=== PATIENT | female | born 1955 | race Caucasian/White ===

== ENCOUNTER 2016-08-24 11:39 | Emergency (ER) | payer MEDICAID, OTHER ==
[~2016-08-24] VITALS: Ht 160 cm; Wt 81.8 kg
[2016-08-24 11:41] VITALS: BP 162/77; PULSE 78; RESP 18; O2SAT 100
--- NOTE | 2016-08-24 12:26 | ED.REPORT ---
HPI-Abd Pain F 40 and Over Date of Service Aug 24, 2016 ED Provider: History of Present Illness: 60-year-old female here for abdominal pain and headache. Acute onset yesterday afternoon. No known fever. She has been vomiting fairly constantly this point she is only dry heaving. She has a frontal headache but does not feel like her usual migraines. She says it feels like the flu. She is having no lightheadedness or visual changes. Her abdominal pain is generalized and right now is not present. She just feels like she has been dry heaving a lot. No urinary symptoms, no diarrhea. Family members have same symptoms. She also sore throat and runny nose Nursing Notes Stated Complaint: VOMITING Chief Complaint: General Complaint Nursing Notes Reviewed: Yes Allergies: Coded Allergies: diphenhydramine (Verified Adverse Reaction, Unknown, 08/24/16) Uncoded Allergies: antihistamines (Allergy, Severe, Anaphylaxis, 08/24/16) narcotics (Adverse Reaction, Severe, 08/24/16) Scheduled PRN Ondansetron ODT (Zofran ODT) 4 Mg Tablet 4 MG PO Q4H PRN PRN For Nausea General Time Seen by MD: 12:21 Chief Complaint Abdominal pain, Nausea, Vomiting moderate Hx Obtained From: Patient Arrived By: Walk-in Sudden in Onset?: Yes Onset Occurred: Yesterday Symptom Duration: Waxes and wanes Progression since Onset: Intermittent Radiation: : Does not radiate Severity: Current: No pain currently Severity: Maximum: Severe Associated with: Reports: Nausea, Vomiting Additional Notes: MENARD Pertinent Negative: Pt denies other symptoms Recent Healthcare: No recent doctor visit Similar Sx Previous: No Review of Systems Basic Review of Systems Eyes: Vision NL, No discharge ENT: Hearing NL, No pain, No nasal congestion, No pharyngeal pain Hematologic: No bleeding, No bruising Endocrine: No cold intolerance, No heat intolerance, No weight gain, No weight loss Skin: No bruising, No rash, No itch Allergy / Immune: No allergy Neurologic: NL mental status, No weakness, No numbness Constitutional: Denies: Chills, Fatigue, Fever, Lethargy, Malaise, Recent wt loss, Weakness - generalized Respiratory: Denies: Dyspnea on exertion, Hemoptysis, Non-productive cough, Parox nocturnal dyspnea, Pleuritic pain, Prod cough, bloody, Prod cough, brown, Prod cough, clear, Prod cough, green, Prod cough, white, Prod cough, yellow, Shortness of breath, Wheezing Cardiovascular: Denies: Chest pain, Dyspnea on exertion, Edema, Orthopnea, Palpitations, Parox nocturnal dyspnea, Syncope GI: Reports: Abdominal pain, Nausea, Vomiting, Denies: Bloody/tarry stool, Constipation, Diarrhea Female: Denies: Dysuria, Flank pain, Hematuria, Incontinence, Nocturia, Pelvic pain, , Urinary frequency, Urinary urgency, Urination decreased, Urination increased, Vaginal bleeding - abnl, Vaginal discharge Musculoskeletal: Denies: Back pain, Extremity pain, Extremity swelling, Joint pain, Joint swelling, Lumbar pain, Myalgia, Neck pain, Thoracic pain Complete sys rev & neg: except as marked. Physical Exam Vital Signs Vital Signs (First) Date Time Temp Pulse Resp B/P Pulse Ox O2 Delivery O2 Flow Rate FiO2 08/24/16 11:41 36.2 78 18 162/77 100 Room Air Initial VS: Reviewed, Vital signs normal Head / Eyes: Atraumatic, Normocephalic, PERRL ENT: Mucous membranes moist, Conjunctiva normal, No scleral icterus Neck: Supple, Non-tender, Full range of motion Lymphatic: No lymphadenopathy Extremities: Vascular intact, Neuro intact, No swelling, No tenderness Skin: Warm, Dry, No cyanosis Neurologic: Alert, Oriented, Nonfocal Psychiatric: Mood/affect normal, Behavior normal, Normal thought content General/Constitutional: Awake, Alert Respiratory / Chest: Atraumatic, Breath sounds = bilat, No respiratory distress , No rales, No rhonchi, No stridor Wheezing / Retractions: Positive: Wheezing expiratory Cardiovascular: Heart rate NL, Regular rhythm, Heart sounds NL, Peripheral circulation NL Abdomen: Soft, Non-tender, McBurney's non-tender, No guarding, No rebound, BS normoactive, No distention, No hernia, No palpable mass, No pulsatile mass Back: Inspection NL, Non-tender, No CVA tenderness Head / Eyes: Normocephalic, PERRL ENT: Airway patent, Mucous membranes moist, Pharynx NL, No facial swelling Skin: Color NL, Warm, Dry, Turgor NL Interpretation & Diagnostics Lab Results Interpretation Result Diagram: 08/24/16 1258 08/24/16 1258 Test 08/24/16 12:58 08/24/16 14:30 White Blood Count 9.1th/mm3 (3.8-10.1) Red Blood Count 4.34mil/mm3 (3.90-5.20) Hemoglobin 13.6g/dL (12.0-15.6) Hematocrit 40.1% (35.0-46.0) Mean Corpuscular Volume 92.4fL (81-100) Mean Corpuscular Hemoglobin 31.3pg (27.0-35.0) Mean Corpuscular Hemoglobin Concent 33.9% (32.0-37.0) Red Cell Distribution Width 12.5% (12.3-15.4) Platelet Count 304bil/L (150-400) Neutrophils (%) (Auto) 85.8% (40-74) Lymphocytes (%) (Auto) 10.8% (14-46) Monocytes (%) (Auto) 3.1% (4-12) Eosinophils (%) (Auto) 0% (0-5) Basophils (%) (Auto) 0.2% (0-3) Sodium Level 135mEq/L (134-144) Potassium Level 3.7mEq/L (3.5-5.2) Chloride Level 100mEq/L (97-108) Carbon Dioxide Level 21mmol/L (18-29) Blood Urea Nitrogen 10mg/dL (8-27) Creatinine 0.64mg/dL (0.57-1.00) Estimat Glomerular Filtration Rate 135mL/min (>59) Glucose Level 117mg/dL (60-99) Calcium Level 9.2mg/dL (8.5-10.1) Magnesium Level 1.8mg/dL (1.6-2.6) Total Bilirubin 0.4mg/dL (0.0-1.2) Aspartate Amino Transf (AST/SGOT) 14U/L (0-50) Alanine Aminotransferase (ALT/SGPT) 11U/L (0-32) Alkaline Phosphatase 69U/L (25-165) Total Protein 8.0g/dL (6.4-8.4) Albumin 4.3g/dL (3.4-5.0) Lipase 14U/L (13-60) Hold Urine Received (Received) X-Ray Chest Interpretation Chest Xray Interpretation: PROCEDURE: X-RAY CHEST ONE VIEW ([id number]) INDICATIONS: wheezing, vomiting TECHNIQUE: One view of the chest was acquired. COMPARISON: None. FINDINGS: Surgical changes and devices: None. Lungs and pleura: No pleural effusions or pneumothorax. Lungs are clear. Mediastinum: Mediastinal contours appear normal. Heart size is normal. Bones and chest wall: No suspicious bony lesions. Overlying soft tissues appear unremarkable. IMPRESSION: No acute pulmonary process. Re-Eval/Medical Decision Med Decision/Clinical Course Labs/xray normal. pt improving. able to tolerate PO. MENARD minimal, no abd pain. Pt feels ready to go home. Discharge & Departure Shift Change Sign-Out Laboratory Evaluation: Lab evaluation discussed Imaging Studies: Imaging discussed Response to Therapy: Improved Primary Impression: Headache Headache type: unspecified Headache chronicity pattern: acute headache Intractability: not intractable Qualified Code: R51 - Headache Additional Impression: Nausea & vomiting Vomiting type: unspecified Vomiting Intractability: unspecified Qualified Code: R11.2 - Nausea with vomiting, unspecified Disposition: Home Discharge Condition All VS Reviewed: Yes Condition: Stable Patient Instructions: Acute Headache (ED) Additional Instructions: Get plenty of rest, drink lots of water. Take home pain meds as needed for pain. Follow up in ER immediately if pain becomes severe, uncontrollable vomiting, fevers, or worse in anyway. Follow-up with your PCP tomorrow if her symptoms persist. Referrals: Bart Soni MD (PCP) EDSupervising Provider for APC: Tex Negro MD copies to: Bart Soni MD, Linnea K [facility] Aug 24, 2016 12:26
[2016-08-24] MEDS ORDERED: MetoCLOpramide 5 mg/mL 2 mL Inj IVPUSH PRN (12:40)
[2016-08-24] MEDS ORDERED: 0.9% Sodium Chloride 1,000 ML IV ONE (12:40)
--- NOTE | 2016-08-24 13:24 | DRSVH ---
PROCEDURE: X-RAY CHEST ONE VIEW ([id number]) INDICATIONS: wheezing, vomiting TECHNIQUE: One view of the chest was acquired. COMPARISON: None. FINDINGS: Surgical changes and devices: None. Lungs and pleura: No pleural effusions or pneumothorax. Lungs are clear. Mediastinum: Mediastinal contours appear normal. Heart size is normal. Bones and chest wall: No suspicious bony lesions. Overlying soft tissues appear unremarkable. IMPRESSION: No acute pulmonary process. Dictated by: Germaine Edward M.D. on 08/24/2016 at 13:22 Approved by: Germaine Edward M.D. on 08/24/2016 at 13:23
[2016-08-24 13:28] LABS: BASOPHILS % (AUTO) 0.2 % (0-3); EOSINOPHILS % (AUTO) 0 % (0-5); MONOCYTES % (AUTO) 3.1 % (4-12); Mean Corpuscular Hemoglobin 31.3 pg (27.0-35.0); Mean Corpuscular Volume 92.4 fL (81-100); NEUTROPHILS % (AUTO) 85.8 % (40-74); Platelet Count 304 bil/L (150-400)
[2016-08-24 13:39] LABS: Magnesium 1.8 mg/dL (1.6-2.6)
[2016-08-24 13:59] VITALS: BP 149/50; PULSE 72; RESP 16; O2SAT 99
[2016-08-24] MEDS ORDERED: ONDA4TAB9 PO (14:34)
[2016-08-24 15:01] VITALS: BP 149/50; PULSE 72; RESP 16; O2SAT 99
== END 2016-08-24 15:01 | disposition home or self-care (01) ==
LOC: SED 11:39
DX: R51 Headache (principal); R11.2 Nausea with vomiting, unspecified; R10.84 Generalized abdominal pain; J02.9 Acute pharyngitis, unspecified; J34.89 Other specified disorders of nose and nasal sinuses; Z88.8 Allergy status to other drugs, medicaments and biological substances; Z88.5 Allergy status to narcotic agent
CPT/HCPCS: 36415; 71010; 80053; 83690; 83735; 85025; 87804; 87880; 96361; 96374; 96375; 99285; J1885; J2765; J7030

== ENCOUNTER 2016-12-11 08:10 | Day surgery (SDC) | payer OTHER ==
[~2016-12-11] VITALS: Ht 162.6 cm; Wt 81.7 kg
[~2016-12-11 08:10] MED LIST: ESTR50GE TD; IBUP-1827 PO; LEVO112T4 PO; Lactated Ringer's 1,000 ML IV ONE; Lactated Ringer's 1,000 ML IV SCH; MEDR5TAB PO; ONDA4TAB9 PO
[2016-12-11] MEDS ORDERED: Propofol 10,000 mCg/mL 20 mL Inj ONE (08:11)
[2016-12-11 08:57] VITALS: BP 138/65; PULSE 61; RESP 15; O2SAT 100
--- NOTE | 2016-12-11 09:22 | PCM.HPANE ---
Patient Data Surgeon Admitting Provider: Attending Provider:Luz Ramsey MD Primary Care Physician:Bart Soni MD Other Provider:Gena Javier Anesthesia Reason for Visit Hx Of Colonic Polyps Ht/WT & BMI Height (Feet): 5 Height (Inches): 4 Weight (Kilograms): 81.65 Body Mass Index 30.00 Allergies Coded Allergies: codeine (Verified Allergy, Unknown, 12/09/16) diphenhydramine (Verified Adverse Reaction, Unknown, 08/24/16) Uncoded Allergies: antihistamines (Allergy, Severe, Anaphylaxis, 08/24/16) narcotics (Adverse Reaction, Severe, 08/24/16) Past Anesthesia History Anesthesia History: Positive for:: Anesthesia Reactions (post op nausae, hard to wake up, low bp), Denies:: Fam Anesthesia Reaction, Fam Malignant Hypertherm, Malignant Hyperthermia Diabetes History Hx Diabetes?: No MRSA MRSA: No Medications Active Scripts Ondansetron ODT (Zofran ODT)4 Mg Tablet4 Mg PO Q4H PRN For Nausea #15 TABLET Ref 0 Prov:Cindy Sanders INFORMATION SYSTEMS SUPERVISOR 08/24/16 Reported Medications Medroxyprogesterone Acetate (Provera)5 Mg Tablet5 Mg PO DAILY 12/09/16 Levothyroxine 112 Mcg [id number] Mcg PO DAILY For Thyroid Replacement Ref 0 12/09/16 Ibuprofen 600 Mg [id number] Mg PO TID PRN For Pain Ref 0 12/09/16 Estradiol (Estrogel)50 Gm Gel..pmp1 Applic TD DAILY 12/09/16 History History of ENT Problems?: No HEENT History: Denies:: Abnormal Airway Cataracts Difficult Intubation Dysphagia Glaucoma Hearing Problem Sinus Problem TMJ Denture Type: None Teeth Condition: Within Normal Limits Hx of Heart Problems?: No Cardiovascular History: Denies:: AICD Abdominal Aortic Aneurism Atrial Fibrillation Cardiac Surgery Chest Pain Congestive Heart Failure Coronary Artery Disease Edema Heart Murmur Hypertension Irregular Heartbeat Pacemaker Peripheral Vascular Rheumatic Fever Thrombophlebitis Valvular Heart Disease Hx of Respiratory Problem?: No Respiratory History: Denies:: Asthma COPD Chest Surgery Cough Dyspnea Emphysema Hemoptysis Oxygen Administration Pneumonia Pulmonary Embolism Tuberculosis Use of C-PAP Machine Use of Inhalers / NEBS Hx Neurologic Problems?: No Neurological History: Denies:: CVA Hx of GI Problems?: No Hx of Problems?: No Female Hx: Denies:: Currently Hx Musculoskeletal Problems?: No Hx of Psycho/Social Problems?: No Hx Surgeries?: Yes (breast reduction, hysterectomy) Hx Any Other Health Problems?: Yes Hx Diabetes: No Hx Alcohol Use: No (occasion) Smoking Status: Former Smoker Have You Smoked inLast 12 mo: No Stop/Bang Treated for Sleep Apnea?: No Do You Have a CPAP Machine?: No S-Snoring: Do You Snore Loudly: No T-Tired: feel tired, fatigued: No O-Obsered: Observed not breath: No P-Blood Pressure: treated: No B- Body Mass Index > 35 kg/m2: No A- Age over 50: Yes N- Neck Large Circumference: No G- Gender Male: No JIMENEZ Total Score: 1 Risk Assessment Category Category 1A: Patient has history of documented sleep apnea, and HAS NOT received any narcotic, sedative or anesthesia administration during this stay. Category 1B: Patient has history of documented sleep apnea, and HAS received any narcotic , sedative or anesthesia administration during this stay Category 2: Patient has SUSPECTED Obstructive Sleep Apnea, and HAS received any narcotic , sedative or anesthesia administration during this stay. Category 3: Patient has SUSPECTED Obstructive Sleep Apnea and HAS NOT received narcotic, sedative or anesthesia administration during this stay. Category 4: Outpatient in Procedural Areas with known sleep apnea or who screen positive for High Risk via the STOP/BANG questionnaire. Exam Exam Vital Signs Vital Signs Date Time Temp Pulse Resp B/P Pulse Ox O2 Delivery O2 Flow Rate FiO2 12/11/16 08:57 61 15 138/65 100 Room Air General Appearance: Alert, Oriented X3 HEENT/AIRWAY: MP 2, Neck Movement (FROM) Lungs: Clear to Auscultation, Clear to Percussion Heart: Exam Unremarkable, Regular Rate/Rhythm Plan Impression Patient chart reviewed, patient interviewed and anesthestic plan with risks, benefits, and alternatives discussed, and informed consent obtained. ASA Physical Status: ASA2 Mod Systemic Disease Anesthetic Plan: MAC Bene/Risks/Altern/Consents: Yes HP Complete Prior to Induction: Yes Cornelio Kiran MD Dec 11, 2016 09:22
[2016-12-11 10:05] VITALS: BP 119/52; PULSE 67; RESP 12; O2SAT 99
--- NOTE | 2016-12-11 10:07 | PCM.ANEP1 ---
Post Anesthesia PACU Phase 1 Assessment Vital Signs Vital Signs Date Time Temp Pulse Resp B/P Pulse Ox O2 Delivery O2 Flow Rate FiO2 12/11/16 08:57 61 15 138/65 100 Room Air Anesthetic Administered: MAC Level of Alertness: Awake, talking ALBERTO's with Equal Strength: Yes Pain: No Nausea or Vomiting: No CV Function & Hydration Stable: Yes Airway Device: Lungs: Clear to Auscultation, Clear to Percussion PACU Phase 2 Assessment Complications: No Follow up Care: No Patient Instructions Provided: N/A Comments See anesth record for PACU VS. PACU VSS Cornelio Kiran MD Dec 11, 2016 10:06
[2016-12-11 10:31] VITALS: BP 94/67; PULSE 67; RESP 14; O2SAT 99
--- NOTE | 2016-12-11 10:43 | ENDO ---
[address] [address] ENDOSCOPY PROCEDURE PATIENT: RAF MARC : 1955 MR#: [id number] ADMIT: 12/11/2016 JOB ID: [id number] DATE: 12/11/2016 PROCEDURE: Colonoscopy. INDICATION: Patient with a history of colon polyps. The patient's ASA classification, Mallampati score and medications as per Dr. Cornelio Kiran's anesthesia note. INSTRUMENT USED: PCF H 180 AL. PREPARATION QUALITY: Was fair. PROCEDURE DETAILS: After informed consent was obtained, the patient was brought into the GI suite, where she was placed on oxygen via nasal cannula and monitored with continuous pulse oximeter, telemetry and blood pressure monitoring. A time-out was performed. Then, she was placed in the left lateral decubitus position and medications were administered for sedation. Digital rectal examination was performed and was unremarkable. The colonoscope was then inserted into the rectum and advanced under direct visualization to the cecum, which identified by the presence of the ileocecal valve and appendiceal orifice. Once the cecum was reached, the colonoscope was withdrawn back in the rectum, and mucosa and lumen were examined. In the rectum, retroflexion was performed. Following retroflexion, remaining air in the rectum was suctioned, and procedure was completed. FINDINGS: 1. In the ascending colon, there was an approximately 4 mm sessile polyp that was removed with cold snare. 2. In the transverse colon, there was an approximately 6 mm sessile polyp that had appearance consistent with serrated adenoma that was removed with a hot snare. 3. In the descending colon, there was an approximately 5 mm polyp that was removed with a hot snare. 4. In the sigmoid colon, there was a 3-4 mm polyp that was removed with a cold snare. IMPRESSION: 1. Ascending colon polyp. 2. Transverse colon polyp. 3. Descending colon polyp. 4. Sigmoid polyp. RECOMMENDATIONS: 1. Avoid nonsteroidal anti-inflammatory drugs and anticoagulants for 72 hours. 2. Repeat colonoscopy in three years. 3. Followup in GI clinic as needed. COMPLICATIONS: None. ESTIMATED BLOOD LOSS: Less than 5 mL. MTDD
--- NOTE | 2016-12-15 14:08 | PATH ---
SURGICAL PATHOLOGY Attending Physician:Jose Herring CASE STATUS: Signed Out PATIENT NAME: RAF MARC PID: [id number] : 1955 DATE COLLECTED:12/11/2016 16:19 SPECIMEN: 1: Colon, Polyp 2: Colon, Polyp 3: Colon, Polyp 4: Colon, Polyp CLINICAL HISTORY: 1). ASCENDING POLYP X1 2). TRANSVERSE POLYP X1 3). DESCENDING POLYP X1 4). SIGMOID POLYP X1 FINAL DIAGNOSIS: 1. Ascending Colon Polyp, Polypectomy: Features of inflammatory polyp. Negative for dysplasia/adenoma. 2. Transverse Colon Polyp, Polypectomy: Serrated polyp, favor sessile serrated adenoma. 3. Descending Colon Polyp, Polypectomy: Hyperplastic polyp. 4. Sigmoid Colon Polyp, Polypectomy: Hyperplastic polyp. ICD10: D12.6 GROSS DESCRIPTION: The specimen is received in four formalin filled containers labeled with the patient's name. 1). The specimen is labeled "ascending polyp" and consists of a 0.3 x 0.3 x 0.2 CM portion of tissue which is entirely submitted in cassette 1A. 2). The specimen labeled "transverse polyp" and consists of multiple portions of tissue which aggregate to 0.3 x 0.3 x 0.2 CM. The specimen is entirely submitted in cassette 2A. 3). The specimen is labeled "descending polyp" and consists of multiple tiny portions of tissue which aggregate to 0.3 x 0.3 x 0.2 CM. The specimen is entirely submitted in cassette 3A. 4). The specimen is labeled "sigmoid polyp" and consists of a 0.1 x 0.1 x 0.1 CM portion of tissue which is entirely submitted in cassette 4A. 12/11/2016FL ICD-9 CODES: CPT CODES: 1: 89621 2: 74452 3: 49034 4: 65407 Electronically Signed Out Tex Anderson MD, Ph.D. [facility] Pathology [facility] [address], [place] [address] Technical component performed at [facility], [facility] [address], [place], [address]
== END 2016-12-11 23:59 | disposition home or self-care (01) ==
LOC: END 08:10
PROVIDERS: ATTEND Internal Medicine Gastroenterology
DX: Z12.11 Encounter for screening for malignant neoplasm of colon (principal); D12.3 Benign neoplasm of transverse colon; K63.5 Polyp of colon; Z86.010 Personal history of colon polyps
CPT/HCPCS: 45385; J2704; J7120